=== PATIENT | male | born 1945 | race Caucasian/White ===

== ENCOUNTER 2017-05-26 15:01 | Inpatient (IN) | payer OTHER ==
[~2017-05-26] VITALS: Ht 175.3 cm; Wt 92.1 kg
[~2017-05-26 15:01] MED LIST: ALLOPURINOL300 M1 PO; ASPIRIN EC81 M1 PO; CARBIDOPA-LEVO1 EAC7 PO; CLOPIDOGREL75 M1 PO; GLUCOPHAGE1000 M1 PO; HYDROCHLOROTH12.5 M2 PO; IRBESARTAN150 M1 PO; LOVASTATIN40 M1 PO; MULTIVITAMINS1 EAC9 PO; TENORMIN100 M1 PO; TRIHEXYPHENIDYL2 M2 PO; VITAMIN B-121000 MC3 PO
--- NOTE | 2017-05-26 15:24 | ED GENERAL ADULT ---
History of Present Illness General Chief Complaint: Chest Pain Stated Complaint: CP Source: patient Exam Limitations: no limitations Vital Signs & Intake/Output Vital Signs & Intake/Output Vital Signs Date Time Temp Pulse Resp B/P B/P Pulse O2 O2 Flow FiO2 Mean Ox Delivery Rate 05/26 1759 97.2 66 18 146/75 98 Room Air 05/26 1712 67 16 164/79 98 Room Air 05/26 1534 98 Nasal 2.0L Cannula 05/26 1533 97.3 57 18 166/91 98 Nasal 2.0L Cannula 05/26 1508 97.3 57 20 141/60 98 Nasal 2.0L Cannula Allergies Coded Allergies: No Known Allergies (05/22/17) Reconcile Medications Allopurinol 300 MG TABLET 1 TAB PO DAILY GOUT (Reported) Aspirin (Ecotrin*) 81 MG TABLET.DR 1 TAB PO DAILY HEART/BLOOD (Reported) Atenolol (Tenormin) 100 MG TABLET 1 TAB PO DAILY BP (Reported) Carbidopa/Levodopa (Carbidopa-Levodopa 25-100 Tab) 25 MG-100 MG TABLET 1 TAB PO TID PARKINSONS (Reported) Clopidogrel Bisulfate (Clopidogrel) 75 MG TABLET 1 TAB PO DAILY BLOOD THINNER (Reported) Cyanocobalamin (Vitamin B-12) 1,000 MCG TABLET 1 TAB PO DAILY SUPPLEMENT ( Reported) Hydrochlorothiazide 12.5 MG TABLET 1 TAB PO EOD DIURETIC/BP (Reported) Irbesartan 150 MG TABLET 1 TAB PO DAILY BP (Reported) Lovastatin 40 MG TABLET 80 MG PO DAILY CHOLESTEROL (Reported) Metformin HCl (Glucophage) 1,000 MG TABLET 2 TAB PO DAILY DM (Reported) Multiple Vitamin (Multivitamins) 1 EACH TABLET 1 TAB PO DAILY SUPPLEMENT ( Reported) Trihexyphenidyl HCl 2 MG TABLET 1 TAB PO TID PARKINSONS (Reported) Triage Note: PT TO ED FROM SAME DAY SURGERY FOR C/P. PT WAS SCHEDULED TO HAVE A URETEROSCOPY TODAY WITH DR CHAMBERS. PT STARTED HAVING SUBSTERNAL CHEST PAIN AROUND 1425 BEFORE GOING TO OR FOR THE PROCEDURE. PT WITH H/O ME AND CARDIAC STENTS X 5. PT RECEIVED 2 SL NITRO'S IN SAME DAY SURGERY WITH SOME RELIEF. ARRIVES TO ED A/OX3, PALE, DIAPHORETIC. C/O 4/10 CHEST PAIN AT THIS TIME. DENIES N/V/D. VSS. EKG IN PROGRESS. DR OLIVER IN FOR EVAL. #20 TO LW PLACED IN SAME DAY SURGERY. Triage Nurses Notes Reviewed? yes Onset: Abrupt Duration: hour(s): Timing: recent history HPI: 05/26/17 3:30 PM 72-year-old male presents to the emergency department from outpatient procedures for chest pain. The patient was waiting for a ureteroscopy and developed retrosternal chest pain. He was given 2 sublingual nitros and his pain improved is currently throughout his hand. His EKG shows normal sinus rhythm with nonspecific ST-T wave abnormality. Past History Travel History Traveled to [place] past 21 day No Medical History Any Pertinent Medical History? see below for history Neurological: Parkinson's disease Cardiovascular: hypertension, hyperlipidemia, myocardial infarction Musculoskeletal: gout Endocrine: diabetes Surgical History Surgical History: non-contributory Psychosocial History What is your primary language Malay Tobacco Use: Quit >30 days ago ETOH Use: denies use Illicit Drug Use: denies illicit drug use Family History Hx Contributory? No Review of Systems Review of Systems Constitutional: Denies: fever. EENTM: Denies: visual changes. Respiratory: Denies: short of breath. Cardiovascular: Reports: chest pain. GI: Denies: abdominal pain. Genitourinary: Reports: no symptoms. Musculoskeletal: Reports: no symptoms. Skin: Denies: rash. Neurological/Psychological: Reports: no symptoms. Hematologic/Endocrine: Reports: no symptoms. Immunologic/Allergic: Reports: no symptoms. Physical Exam Physical Exam General Appearance: alert, awake, anxious, moderate distress Head: atraumatic, normal appearance Eyes: Bilateral: normal appearance, PERRL, EOMI. Ears, Nose, Throat: normal ENT inspection Neck: supple Respiratory: no respiratory distress Cardiovascular: regular rate/rhythm Peripheral Pulses: 4+ radial (R), 4+ radial (L) Gastrointestinal: soft, non-tender Back: decreased range of motion Extremities: pedal edema Neurologic/Psych: awake, alert, oriented x 3 Skin: intact, normal color, warm/dry Core Measures ACS in differential dx? Yes CVA/TIA Diagnosis: No Sepsis Present: No Sepsis Focused Exam Completed? No Progress Differential Diagnoses I considered the following diagnoses in my evaluation of the patient: Plan of Care: Orders Procedure Date/time Status Heart Healthy Diet 05/27 B Active ED Holding Orders 05/26 1802 Active Admit to inpatient 05/26 1802 Active Vital Signs 04/17 1803 Active Code Status 05/26 1803 Active EKG 05/26 1538 Active TROPONIN LEVEL 05/26 1531 Complete D-DIMER 05/26 1531 Complete COMPREHENSIVE METABOLIC PANEL 05/26 1531 Complete CBC WITHOUT DIFFERENTIAL 05/26 1531 Complete EKG 05/26 1506 Active Laboratory Tests 05/26/17 1532: Anion Gap 14, Estimated GFR > 60, BUN/Creatinine Ratio 22.2, Glucose 144 H, Calcium 9.8, Total Bilirubin 2.1 H, AST 22, ALT 37, Alkaline Phosphatase 57, Troponin I < 0.01, Total Protein 7.3, Albumin 4.2, Globulin 3.1, Albumin/ Globulin Ratio 1.4, D-Dimer High Sensitivty 205, CBC w Diff NO MAN DIFF REQ, RBC 4.33 L, MCV 91.1, MCH 30.3, MCHC 33.3, RDW 15.4 H, MPV 8.6, Gran % 56.8, Lymphocytes % 27.7, Monocytes % 10.8 H, Eosinophils % 3.5, Basophils % 1.2, Absolute Granulocytes 4.1, Absolute Lymphocytes 2.0, Absolute Monocytes 0.8 H, Absolute Eosinophils 0.3, Absolute Basophils 0.1 CXR Impression: WIDE MEDIASTINUM Initial ED EKG: NSR, nonspecific ST T wave chg Repeat EKG: changed Comments: CTA IMPRESSION: 1. There is dilatation of the ascending aorta to a diameter of 4.1 cm but no aneurysm. There is no dissection of aorta. There are atherosclerotic vascular wall calcifications. 2. No acute change of the chest. 3. Nonobstructive renal calculi in the upper pole of each kidney. DICTATED BY: Ayden Hilario MD DATE/TIME DICTATED:05/26/171708 SENIOR ASSET MANAGER:BRAULIO DATE/TIME TRANSCRIBED:05/26/171708 CONFIDENTIAL, DO NOT COPY WITHOUT APPROPRIATE AUTHORIZATION. <Electronically signed in Other Vendor System> SIGNED BY: Ayden Hilario MD 05/26/171725 Departure Departure Disposition: STILL A PATIENT Condition: Stable Clinical Impression Primary Impression: Acute electrocardiogram changes Referrals: Puneet Dudley MD (PCP/Family) Departure Forms: Customer Survey General Discharge Information Comments Patient and ongoing pain that required 3 sublingual nitros. He has a history of coronary artery disease. He has 5 stents. He did have nonspecific but abnormal EKG changes. He was seen and evaluated in the ED by his door frame builder Dr. Dotson. I spoke to the patient's own door frame builder who agreed with the plan. Admission Note Spoke With: Nila HAGER PHD,Parth Molina Documentation of Exam: Documentation of any treatments & extenuating circumstances including Concerns Regarding Discharge (functional status, medication knowledge or non-compliance, living conditions, etc.) that warrant an admission rather than observation: [The patient needs admission for serial troponins, cardiology consultation, inpatient echocardiogram,] Critical Care Note Critical Care Note Critical Care Time: 30-74 min
[2017-05-26 15:40] LABS: ABSOLUTE BASOPHIL COUNT 0.1 /CUMM (0.0-0.2); ABSOLUTE EOSINOPHIL COUNT 0.3 /CUMM (0.0-0.7); ABSOLUTE GRANULOCYTE CT 4.1 /CUMM (1.4-6.5); ABSOLUTE MONOCYTE COUNT 0.8 /CUMM (0.10-0.60); BASOPHIL % 1.2 % (0.0-2.0); EOSINOPHIL % 3.5 % (0-5); GRANULOCYTE % 56.8 % (42.2-75.2); HEMATOCRIT 39.4 % (42-52); MEAN CORPUSCULAR HGB 30.3 PG (27.0-31.0); MEAN CORPUSCULAR HGB CONC 33.3 G/DL (33.0-37.0); MEAN CORPUSCULAR VOLUME 91.1 FL (80.0-94.0); MEAN PLATELET VOLUME 8.6 FL (7.4-10.4); PLATELET COUNT 242 /CUMM (130-400); RBC DISTRIBUTION WIDTH 15.4 % (11.5-14.5); RED BLOOD CELL CT 4.33 /CUMM (4.70-6.10); WHITE BLOOD CELL COUNT 7.2 /CUMM (4.8-10.8)
--- NOTE | 2017-05-26 16:03 | RADIOLOGY REPORT ---
XR PORTABLE CHEST CLINICAL INFORMATION: Chest pain. COMPARISON: None available. TECHNIQUE: Portable frontal view of the chest was obtained. FINDINGS: Symmetric lung inflation. There is no focal consolidation, pleural effusion, or pneumothorax. Widening of the upper mediastinum. CTA of the chest would be helpful in excluding a vascular etiology for this finding. There are no acute osseous findings. IMPRESSION: - Widening of the upper mediastinum. CTA of the chest would be helpful in excluding a vascular etiology for this finding. - The lungs are clear. Findings discussed with Dr. Tani Fung at 4:00 PM on 05/26/2017.
--- NOTE | 2017-05-26 17:26 | CT SCAN REPORT ---
EXAMINATION: CTA OF CHEST, AORTIC DISSECTION CLINICAL INFORMATION: Chest pain. Widened mediastinum. COMPARISON: Chest x-ray 05/26/2017. TECHNIQUE: Noncontrast axial images obtained through the chest. An IV injection of 95 mL of Optiray 320 was administered with images performed through the chest post contrast. Coronal and sagittal reformatted images are performed at CT scanner. FINDINGS: VASCULAR: There is no aneurysm or dissection of the thoracic aorta. The ascending aorta however is dilated to a diameter of 4.1 cm. There are atherosclerotic vascular calcifications of the aorta. MEDIASTINUM: There is coronary artery calcification. There is no pericardial effusion. Heart size is normal. There is no mediastinal mass or lymphadenopathy. There is no inflammation. LUNGS: Lungs are clear. No interstitial or reticular opacity. The central bronchial airways are open. There is no bronchiectasis. PLEURA: No pleural effusion or pneumothorax. CHEST WALL: No mass or adenopathy. UPPER ABDOMEN: The adrenal glands are normal. The visualized portions of the liver and spleen are normal. There are 2 adjacent 2 mm nonobstructive stones in the upper pole of the right kidney and a single punctate stone in the upper pole of left kidney. The pancreas is atrophic. SKELETAL: Degenerative spondylosis of dorsal spine. IMPRESSION: 1. There is dilatation of the ascending aorta to a diameter of 4.1 cm but no aneurysm. There is no dissection of aorta. There are atherosclerotic vascular wall calcifications. 2. No acute change of the chest. 3. Nonobstructive renal calculi in the upper pole of each kidney.
--- NOTE | 2017-05-26 18:25 | History & Physical ---
General Information and HPI MD Statement: I have seen and personally examined JAYCEE MCKINNEY and documented this H&P. The patient is a 71 year old M who presented with a patient stated chief complaint of chest pain. Source of Information: patient, family, old records Exam Limitations: no limitations History of Present Illness: Mr. Mckinney is a 71-year-old gentleman with past medical history of coronary artery disease status post 5 stents, gout, hypertension, Parkinson's disease, Arotic Stenosis and diabetes who was brought into the emergency department from same day surgery under the care of for a ureteroscopy. The patient was scheduled to undergo the procedure at approximately 11 AM this morning however once he got to same-day surgery was told procedure not likely to happen until 2 PM. Subsequently endorsed pain rated at a 7 out of 10 severity. Described as dull and pressure-like. Patient states that this pain lasted a couple of hours. While in same-day surgery the patient was also given some sublingual nitroglycerin as well as some fruit juice which the patient stated abated his symptoms. At the time of our clinical interaction the patient was chest pain-free and enjoying his dinner. His a former RN was also present during the time of all clinical interaction. Patient does state that he has a history of nephrolithiasis and was subsequently undergoing an elective procedure. He reports good medication compliance. He also states that this morning prior to undergoing his procedure he felt that he may have been nothing by mouth for too long not having anything to eat or drink and not being able to take his medications. He denied any fever, chills, nausea, vomiting. Allergies/Medications Allergies: Coded Allergies: No Known Allergies (05/22/17) Home Med list Allopurinol 300 MG TABLET 1 TAB PO DAILY GOUT (Reported) Aspirin (Ecotrin*) 81 MG TABLET.DR 1 TAB PO DAILY HEART/BLOOD (Reported) Atenolol (Tenormin) 100 MG TABLET 1 TAB PO DAILY BP (Reported) Carbidopa/Levodopa (Carbidopa-Levodopa 25-100 Tab) 25 MG-100 MG TABLET 1.5 TAB PO TID PARKINSONS (Reported) Clopidogrel Bisulfate (Clopidogrel) 75 MG TABLET 1 TAB PO DAILY BLOOD THINNER (Reported) Cyanocobalamin (Vitamin B-12) 1,000 MCG TABLET 1 TAB PO DAILY SUPPLEMENT ( Reported) Heparin Sodium,Porcine/D5w (Heparin-D5w 25,000 Unit/500 Ml) 25,000 UNIT/500 ML ( 50 UNIT/ML) IV.SOLN 25,000 UNIT IV Q24 NSTEMI Hydrochlorothiazide 12.5 MG TABLET 1 TAB PO EOD DIURETIC/BP (Reported) Irbesartan 150 MG TABLET 1 TAB PO DAILY BP (Reported) Lovastatin 40 MG TABLET 80 MG PO DAILY CHOLESTEROL (Reported) Metformin HCl (Glucophage) 1,000 MG TABLET 2 TAB PO DAILY DM (Reported) Multiple Vitamin (Multivitamins) 1 EACH TABLET 1 TAB PO DAILY SUPPLEMENT ( Reported) Trihexyphenidyl HCl 2 MG TABLET 1 TAB PO TID PARKINSONS (Reported) Compliance With Home Meds: GOOD Past History Travel History Traveled to [place] past 21 day No Medical History Neurological: Parkinson's disease Cardiovascular: hypertension, hyperlipidemia, myocardial infarction Musculoskeletal: gout Endocrine: diabetes Surgical History Surgical History: non-contributory Past Family/Social History Psychosocial History Where do you live? Home Who Do You Live With? spouse Services at Home: None Primary Language: Paraguayan Smoking Status: Former Smoker ETOH Use: denies use Illicit Drug Use: denies illicit drug use Functional Ability ADLs Independent: dressing, eating, toileting, bathing. Ambulation: independent IADLs Independent: shopping, housework, finances, food prep, telephone, transportation , medication admin. Employment History Employment Employed Profession/Employer [employer] Review of Systems Review of Systems Constitutional: Reports: see HPI. Exam & Diagnostic Data Last 24 Hrs of Vital Signs/I&O Vital Signs Date Time Temp Pulse Resp B/P B/P Pulse O2 O2 Flow FiO2 Mean Ox Delivery Rate 05/26 1759 97.2 66 18 146/75 98 Room Air 05/26 1712 67 16 164/79 98 Room Air 05/26 1534 98 Nasal 2.0L Cannula 05/26 1533 97.3 57 18 166/91 98 Nasal 2.0L Cannula 05/26 1508 97.3 57 20 141/60 98 Nasal 2.0L Cannula Intake & Output 05/26 1600 05/26 0800 05/26 0000 Intake Total Output Total Balance Patient 92.079 kg Weight Weight Reported by Patient Measurement Method Physical Exam General Appearance Alert, Oriented X3, Cooperative Skin No Rashes Skin Temp/Moisture Exam: Warm/Dry Sepsis Skin Exam (color): Normal for Ethnicity Cardiovascular Normal S1, Normal S2 Lungs Clear to Auscultation Abdomen Normal Bowel Sounds, Soft, No Tenderness Neurological Normal Gait, Normal Speech, Strength at 5/5 X4 Ext Extremities No Clubbing, No Cyanosis, No Edema Vascular Normal Pulses Last 24 Hrs of Labs/Yaya: Laboratory Tests 05/26/17 1532: Anion Gap 14, Estimated GFR > 60, BUN/Creatinine Ratio 22.2, Glucose 144 H, Calcium 9.8, Phosphorus 3.2, Magnesium 1.6, Total Bilirubin 2.1 H, AST 22, ALT 37, Alkaline Phosphatase 57, Troponin I < 0.01, Total Protein 7.3, Albumin 4.2, Globulin 3.1, Albumin/Globulin Ratio 1.4, D-Dimer High Sensitivty 205, CBC w Diff NO MAN DIFF REQ, RBC 4.33 L, MCV 91.1, MCH 30.3, MCHC 33.3, RDW 15.4 H, MPV 8.6, Gran % 56.8, Lymphocytes % 27.7, Monocytes % 10.8 H, Eosinophils % 3.5 , Basophils % 1.2, Absolute Granulocytes 4.1, Absolute Lymphocytes 2.0, Absolute Monocytes 0.8 H, Absolute Eosinophils 0.3, Absolute Basophils 0.1 Assessment/Plan Assessment: Mr. Mckinney is a 71-year-old gentleman with past medical history of coronary artery disease status post 5 stents, gout, hypertension, Parkinson's disease, Arotic Stenosis and diabetes who was brought into the emergency department from same day surgery under the care of for a ureteroscopy. His chest pain given multiple risk factors is concerning for myocardial in nature however given the fact that his initial troponin and EKG were within normal limits this remains low on the differential. His acute symptoms may been precipitated by the fact that he was left nothing by mouth for a long time especially since he was not able to take his medications and likely some component of anxiety may have precipitated worsening symptoms. We willadmit him to the telemetry service and rule him out over the course of the next few hours. Chest pain rule out ACS. History of diabetes. History of Parkinson's. History of hypertension. History of hyperlipidemia. Admit the patient to telemetry. Serial troponins and EKGs. Every 6 hours. Should there be any changes consider low threshold for ICU transfer versus transfer for cardiac catheterization. Echocardiogram in a.m. assess for any wall motion abnormalities. Cardiology consultation was already obtained. Follow formal recommendations. Continue Sinemet and Artane for Parkinson's. Continue antihypertensives. NovoLog sliding scale to midnight and then Novolin sliding scale. Patient to be made nothing by mouth. If ruled out for ACS and Dr. Kingston would like to take him for a ureteroscopy we can see if this can be done tomorrow I attempted to call the office of Dr. Kingston and left a voicemail for possible consultation in the a.m. Continue aspirin and Plavix. Diet consistent carbohydrate, nothing by mouth overnight. DVT prophylaxis with enoxaparin Patient is a full code. As Ranked By This Provider Problem List: 1. Aortic stenosis 2. Chest pain 3. Hypertension Core Measures/Misc (10/26) Acute Coronary Syndrome ACS Diagnosis: No Congestive Heart Failure Congestive Heart Failure Diagnosis No Cerebrovascular Accident CVA/TIA Diagnosis: No VTE (View Protocol) VTE Risk Factors Age>40 No Mechanical VTE Prophylaxis d/t N/A MechProphylax Ordered No VTE Pharm Prophylaxis d/t NA PharmProphylax ordered Sepsis (View protocol) Sepsis Present: No
--- NOTE | 2017-05-26 20:13 | Cons- Cardiology ---
General Information and HPI Consulting Request Date of Consult: 05/26/17 Requested By: Nila HAGER PHD,Parth Molina History of Present Illness: This patient is a 71 year old male with history of hypertension, dyslipidemia, diabetes and coronary artery disease status post WY and subsequent stent placement. He presented to [facility] for a urological procedure for renal lithiasis. Prior to the procedure the patient complained of chest discomfort and was therefore sent to the ER for further evaluation. He now reports a moderate intensity chest pressure which is non-radiating. It is not associated with nausea or vomiting but there is some diaphoresis. He is without shortness of breath, lightheadedness or palpitations. It should be noted that he does achieve some relief with NTG. The patient withheld all his usual medications except for Atenolol prior to his anticipated procedure this morning. Allergies/Medications Allergies: Coded Allergies: No Known Allergies (05/22/17) Home Med List: Allopurinol 300 MG TABLET 1 TAB PO DAILY GOUT (Reported) Aspirin (Ecotrin*) 81 MG TABLET.DR 1 TAB PO DAILY HEART/BLOOD (Reported) Atenolol (Tenormin) 100 MG TABLET 1 TAB PO DAILY BP (Reported) Carbidopa/Levodopa (Carbidopa-Levodopa 25-100 Tab) 25 MG-100 MG TABLET 1 TAB PO TID PARKINSONS (Reported) Clopidogrel Bisulfate (Clopidogrel) 75 MG TABLET 1 TAB PO DAILY BLOOD THINNER (Reported) Cyanocobalamin (Vitamin B-12) 1,000 MCG TABLET 1 TAB PO DAILY SUPPLEMENT ( Reported) Hydrochlorothiazide 12.5 MG TABLET 1 TAB PO EOD DIURETIC/BP (Reported) Irbesartan 150 MG TABLET 1 TAB PO DAILY BP (Reported) Lovastatin 40 MG TABLET 80 MG PO DAILY CHOLESTEROL (Reported) Metformin HCl (Glucophage) 1,000 MG TABLET 2 TAB PO DAILY DM (Reported) Multiple Vitamin (Multivitamins) 1 EACH TABLET 1 TAB PO DAILY SUPPLEMENT ( Reported) Trihexyphenidyl HCl 2 MG TABLET 1 TAB PO TID PARKINSONS (Reported) Review of Systems Review of Systems: A twelve point review of systems is unremarkable. Past History Travel History Traveled to [place] past 21 day No Medical History Neurological: Parkinson's disease Cardiovascular: CAD, hypertension, hyperlipidemia, myocardial infarction Musculoskeletal: gout Endocrine: diabetes Surgical History Surgical History: non-contributory Psychosocial History Where Do You Live? Home Services at Home: None Primary Language: Kiswahili Smoking Status: Former Smoker ETOH Use: denies use Illicit Drug Use: denies illicit drug use Functional Ability ADLs Independent: dressing, eating, toileting, bathing. Ambulation: independent IADLs Independent: shopping, housework, finances, food prep, telephone, transportation , medication admin. Exam & Diagnostic Data Vital Signs and I&O Vital Signs Date Time Temp Pulse Resp B/P B/P Pulse O2 O2 Flow FiO2 Mean Ox Delivery Rate 05/26 1759 97.2 66 18 146/75 98 Room Air 05/26 1712 67 16 164/79 98 Room Air 05/26 1534 98 Nasal 2.0L Cannula 05/26 1533 97.3 57 18 166/91 98 Nasal 2.0L Cannula 05/26 1508 97.3 57 20 141/60 98 Nasal 2.0L Cannula Intake & Output 05/26 1600 05/26 0800 05/26 0000 05/25 1600 05/25 0800 05/25 0000 Intake Total Output Total Balance Patient 203 lb Weight Weight Reported by Patient Measurement Method Physical Exam: General: WD/WN male in NAD; alert and oriented x 3 HEENT: NC/AT, PERRL, EOMI Neck: no JVD, no carotid bruit Heart: RRR w/o murmur Lungs: clear bilaterally Abdomen: soft, NT, +ve bowel sounds Extremities: no edema Assessment/Plan Assessment/Plan * This patient has symtoms consistent with myocardial ischemia. At the present time I do not think he is ruling in for an ACS but we will monitor him on telemetry and follow three sets of cardiac enzymes. I suspect he does have diffuse atherosclerotic CAD since he has 5 stents and an WY. In the absence of his medications which he held prior to the procedure he was severely hypertensive and this may well have been enough to elicit angina. Restart all his medications for now. If the patient has recurrent chest pain begin NTG paste. * This patient does anticipate a urological procedure. We will discuss with his urologist the feasibility of having the procedure tomorrow if he rules out for an WY and will need to discus the medications that truly need to be held for the procedure. * Obtain an echocardiogram. Consult Acknowledgment - Thank you for your consult request.
--- NOTE | 2017-05-26 22:42 | Event Note ---
Event Note Event Note: MOD received a call from second watch sergeant regarding positive troponin of 21.70. Laboratory Aide evaluate EKG, Heparin bolus and gtt is started , Nitro paste, high dose statin, plavix and aspirin was ordered. Atenolol to be started tomorrow. Patient will be placed at ICU (Initially patient was reluctant to be transfer to ICU then he agreed), second watch sergeant talked to the patient through the phone and discussed the case and plan with him. Patient will be transfered to [facility] for cardiac catheterization at early am. Will continue to trend troponin and EKG , if patient developed any chest pain, second watch sergeant should be notified. The accepting physician at [facility] is Dr.Clifford Renee who is patient's second watch sergeant. Update at 3:30 am his troponin elevated to 54.60, with no active chest pain or new EKG changes. Case management paged by ED, ED nurse inform to transfer the patient immediately , DR. Renee also spoke to ED, to transfer the patient immediately to blood and plasma laboratory assistant at [facility], he requested to hold heparin gtt.
[2017-05-27] MEDS ORDERED: HEPARIN-D525000 UNI1 IV (01:15)
--- NOTE | 2017-05-27 01:19 | Patient Discharge Instructions ---
Discharge Instructions General Discharge Information You were seen/treated for: -Chest pain/ NSTEMI Diet Recommended Diet: NPO TILL AFTER CARDIAC CATHETERIZATION Acute Coronary Syndrome Inclusion Criteria At DC or during hospital stay patient has or had the following: ACS DIAGNOSIS Yes Discharge Core Measures Meds if any: Prescribed or Continued at Discharge Meds if any: NOT Prescribed or Continued at Discharge Congestive Heart Failure Inclusion Criteria At DC or during hospital stay patient has or had the following: CHF DIAGNOSIS No Discharge Core Measures Meds if any: Prescribed or Continued at Discharge Meds if any: NOT Prescribed or Continued at Discharge Cerebrovascular accident Inclusion Criteria At DC or during hospital stay patient has or had the following: CVA/TIA Diagnosis No Discharge Core Measures Meds if any: Prescribed or Continued at Discharge Meds if any: NOT Prescribed or Continued at Discharge Venous thromboembolism Inclusion Criteria VTE Diagnosis No VTE Type NONE VTE Confirmed by (Test) NONE Discharge Core Measures - Per Current guidelines, there needs to be overlap - treatment for the first 5 days of Warfarin therapy. - If discharged on Warfarin prior to 5 days of - overlap therapy, the patient will need to be - assessed for post discharge needs including - *Post discharge parental anticoagulation - *Warfarin and/or parental anticoagulation education - *Follow up date to check INR post discharge At least 5 days overlap therapy as Inpatient No Meds if any: Prescribed or Continued at Discharge Note: Overlap Therapy is Warfarin and Anticoagulant Meds if any: NOT Prescribed or Continued at Discharge
--- NOTE | 2017-05-27 01:39 | Discharge Summary ---
See Addendum Visit Information Visit Dates Admission Date: 05/26/17 Discharge Date: 05/27/2017 Hospital Course Course Attending Physician: Nila HAGER PHD,Parth Molina Primary Care Physician: Octavia HAGER,Puneet Alfaro Hospital Course: This patient is a 71 year old male with history of hypertension, dyslipidemia, diabetes and coronary artery disease status post ID and subsequent stent placement. He presented to [facility] for a urological procedure for renal lithiasis. Prior to the procedure the patient complained of chest discomfort and was therefore sent to the ER for further evaluation. He reports a moderate intensity chest pressure which is non-radiating. It is not associated with nausea or vomiting but there is some diaphoresis. He is without shortness of breath, lightheadedness or palpitations. It should be noted that he does achieve some relief with NTG. The patient withheld all his usual medications except for Atenolol prior to his anticipated procedure this morning. Patient admitted to telemetry floor to r/o ACS, his initial EKG showed acute changes, initial troponin was negative, another set of EKG and troponin was sent in 4 hours which showed positive troponin of 21.[address] elevation on EKG. MOD received a call from taxonomy teacher regarding positive troponin of 21.70. System Development Manager evaluate EKG, Heparin bolus and gtt is started , Nitro paste, high dose statin, plavix and aspirin was ordered. Atenolol to be started tomorrow. Patient will be placed at ICU (Initially patient was reluctant to be transfer to ICU then he agreed), taxonomy teacher talked to the patient through the phone and discussed the case and plan with him. Patient will be transfered to [facility] for cardiac catheterization at early am. Will continue to trend troponin and EKG , if patient developed any chest pain, taxonomy teacher should be notified. Update at 3:30 am his troponin elevated to 54.60, with no active chest pain or new EKG changes. Accepting physician at [facility] is . Patient's taxonomy teacher is Dr. Malvin Renee. Complications: Non Allergies: Coded Allergies: No Known Allergies (05/22/17) Disposition Summary Disposition Principal Diagnosis: -NSTEMI -History of diabetes. -History of Parkinson's. -History of hypertension. -History of hyperlipidemia. Additional Diagnosis: As above Discharge Disposition: other general hospital Discharge Instructions General Discharge Information Code Status: Full Code Patient's Diet: NPO until cardiac catheterization Patient needs to be placed on heart healthy diet afterward Patient's Activity: As tolerated Follow-Up Instructions/Appts: -Follow up with your cardilogist after discharge -Follow up with your PCP after discharge -Take your medications as prescribed Medications at Discharge Discharge Medications: Continue taking these medications: Metformin HCl (Glucophage) 1,000 MG TABLET 2 Tablet ORAL DAILY Lovastatin (Lovastatin) 40 MG TABLET 80 Milligram ORAL DAILY Irbesartan (Irbesartan) 150 MG TABLET 1 Tablet ORAL DAILY Clopidogrel Bisulfate (Clopidogrel) 75 MG TABLET 1 Tablet ORAL DAILY Atenolol (Tenormin) 100 MG TABLET 1 Tablet ORAL DAILY Hydrochlorothiazide (Hydrochlorothiazide) 12.5 MG TABLET 1 Tablet ORAL Every other day Allopurinol (Allopurinol) 300 MG TABLET 1 Tablet ORAL DAILY Trihexyphenidyl HCl (Trihexyphenidyl HCl) 2 MG TABLET 1 Tablet ORAL THREE TIMES DAILY Carbidopa/Levodopa (Carbidopa-Levodopa 25-100 Tab) 25 MG-100 MG TABLET 1.5 Tablet ORAL THREE TIMES DAILY Qty = 30 Multiple Vitamin (Multivitamins) 1 EACH TABLET 1 Tablet ORAL DAILY Aspirin (Ecotrin*) 81 MG TABLET.DR 1 Tablet ORAL DAILY Cyanocobalamin (Vitamin B-12) 1,000 MCG TABLET 1 Tablet ORAL DAILY Start taking the following new medications: Heparin Sodium,Porcine/D5w (Heparin-D5w 25,000 Unit/500 Ml) 25,000 UNIT/500 ML ( 50 UNIT/ML) IV.SOLN 25,000 Unit INTRAVEN EVERY 24 HOURS Qty = 1 No Refills Copies To: Nila HAGER PHD,Parth Molina
[2017-05-27 04:45] LABS: ABSOLUTE BASOPHIL COUNT 0.1 /CUMM (0.0-0.2); ABSOLUTE EOSINOPHIL COUNT 0.3 /CUMM (0.0-0.7); ABSOLUTE GRANULOCYTE CT 5.6 /CUMM (1.4-6.5); ABSOLUTE MONOCYTE COUNT 0.9 /CUMM (0.10-0.60); BASOPHIL % 0.9 % (0.0-2.0); EOSINOPHIL % 2.9 % (0-5); GRANULOCYTE % 63.7 % (42.2-75.2); HEMATOCRIT 40.3 % (42-52); MEAN CORPUSCULAR HGB 29.6 PG (27.0-31.0); MEAN CORPUSCULAR HGB CONC 32.4 G/DL (33.0-37.0); MEAN CORPUSCULAR VOLUME 91.5 FL (80.0-94.0); MEAN PLATELET VOLUME 9.3 FL (7.4-10.4); PLATELET COUNT 218 /CUMM (130-400); WHITE BLOOD CELL COUNT 8.8 /CUMM (4.8-10.8)
[2017-05-27 05:05] VITALS: BP 144/71
[2017-05-27 05:57] LABS: PTT 71 SEC (25-37)
== END 2017-05-26 18:40 | disposition short-term general hospital (02) | DRG 282 ==
LOC: ERH 15:01 → ERHI 18:03 → EDBEDREQ 22:08
PROVIDERS: Emergency Medicine; Student in an Organized Health Care Education/Training Program
DX: I21.4 Non-ST elevation (NSTEMI) myocardial infarction (principal); G20 Parkinson's disease; E11.9 Type 2 diabetes mellitus without complications; I35.0 Nonrheumatic aortic (valve) stenosis; I10 Essential (primary) hypertension; I25.10 Atherosclerotic heart disease of native coronary artery without angina pectoris; Z98.61 Coronary angioplasty status; M10.9 Gout, unspecified; Z79.84 Long term (current) use of oral hypoglycemic drugs; Z79.82 Long term (current) use of aspirin; I25.2 Old myocardial infarction
CPT/HCPCS: ERO; 71045; 82436; 93005; 93010; 99291; J0131; J1644; J1650; J2250; J3490